=== PATIENT | female | born 1960 | race Caucasian/White ===

== ENCOUNTER 2018-10-13 10:23 | Emergency (ER) | payer OTHER ==
[~2018-10-13] VITALS: Ht 160 cm; Wt 70.3 kg
[2018-10-13] MEDS ORDERED: NABUMETONE 750750 M1 PO (12:31)
[2018-10-13] MEDS ORDERED: NORCO 5-325 TA1 EACH PO (12:31)
[2018-10-13 12:38] VITALS: BP 129/81
== END 2018-10-13 12:39 | disposition home or self-care (01) ==
LOC: M.ERS 10:23
DX: S22.32XA Fracture of one rib, left side, initial encounter for closed fracture (principal); S70.02XA Contusion of left hip, initial encounter; S09.8XXA Other specified injuries of head, initial encounter; V49.49XA Driver injured in collision with other motor vehicles in traffic accident, initial encounter; Y93.89 Activity, other specified; Y92.89 Other specified places as the place of occurrence of the external cause; Y99.8 Other external cause status